=== PATIENT | female | born 1955 | race Caucasian/White ===

== ENCOUNTER 2017-10-02 04:39 | Inpatient (IN) | payer MEDICARE ==
[~2017-10-02] VITALS: Ht 165.1 cm; Wt 62.3 kg
[~2017-10-02 04:39] MED LIST: ALPR0.25 PO; ASPI325T17; BUDE10.2 INH; DOXY100T10 PO; ESOM40CA; FLOMAX; FLUT1DIS3; HYDR-3240; IPRA14.7; IPRA3AMP INH; LEVO75CA2; LOVA40TA65; MELO7.5T31; METO25TA91; POTA20PA25; PRED10TA PO
[2017-10-02] MEDS ORDERED: ALBUTEROL SULFATE 2.5 MG/3 ML NPPB ONE ×2 (05:00)
[2017-10-02] MEDS ORDERED: ALBUTEROL SULFATE 2.5 MG/3 ML ONE ×2 (05:03→07:53)
[2017-10-02] MEDS ORDERED: SODIUM CHLORIDE 0.9% 1,000 ML IV ONE (05:20)
[2017-10-02] MEDS ORDERED: ACETAMINOPHEN 325 MG TABLET PO ONE (05:30)
[2017-10-02] MEDS ORDERED: SODIUM CHLORIDE FLUSH 10ML SYR IVF ONE (05:30)
[2017-10-02] MEDS ORDERED: SODIUM CHLORIDE 0.9% 1,000ML IVBOLUS ONE (05:30)
[2017-10-02] MEDS ORDERED: ACETAMINOPHEN 325 MG TABLET ONE (05:55)
[2017-10-02] MEDS ORDERED: LORazepam 2 MG/ML, 1ML ONE (06:00)
[2017-10-02] MEDS ORDERED: LORazepam 2 MG/ML, 1ML IVPush ONE (06:00)
[2017-10-02 06:06] LABS: BASOPHILS # (AUTO) 0.02 x10^3/uL (0-0.1); BASOPHILS % (AUTO) 0 % (0-1); EOSINOPHILS % (AUTO) 0 % (1-7); LYMPHOCYTES # (AUTO) 0.49 x10^3/uL (1-3.4); LYMPHOCYTES % (AUTO) 5 % (22-44); MD NO; MEAN CORPUSCULAR HEMOGLOBIN 28.8 pg (27.0-34.8); MEAN CORPUSCULAR HGB CONC 31.9 g/dL (32.4-35.8); MEAN CORPUSCULAR VOLUME 90.4 fL (80-100); MEAN PLATELET VOLUME 7.5 fL (7.4-10.4); MONOCYTES # (AUTO) 0.37 x10^3/uL (0.2-0.8); MONOCYTES % (AUTO) 4 % (2-9); NEUTROPHILS % (AUTO) 91 % (42-75); PLATELET COUNT 573 x10^3/uL (130-400); RED BLOOD COUNT 4.21 x10^6/uL (3.82-5.3); RED CELL DISTRIBUTION WIDTH 14.5 % (9.6-15.2)
[2017-10-02 06:08] LABS: ALANINE AMINOTRANSFERASE 12 U/L (12-78); ALBUMIN 2.4 g/dL (3.4-5.0); ANION GAP 9 mmol/L (5-15); CALCIUM 8.1 mg/dL (8.5-10.1); CHLORIDE 105 mmol/L (98-107); CREATININE 0.85 mg/dL (0.55-1.02)
[2017-10-02] MEDS ORDERED: LEVO750T26 PO (06:10)
[2017-10-02 06:12] LABS: ALKALINE PHOSPHATASE 88 U/L (45-117); BILIRUBIN,TOTAL 0.3 mg/dL (0.2-1.0); TOTAL PROTEIN 6.6 g/dL (6.4-8.2)
[2017-10-02] MEDS: PROPOFOL 100 ML IV PRN ×3 (07:53→17:22)
[2017-10-02] MEDS ORDERED: SUCCINYLCHOLINE 20 MG/ML, 10ML IVPush ONE (08:00)
[2017-10-02] MEDS ORDERED: ETOMIDATE 20 MG/10 ML IVPush ONE (08:00)
[2017-10-02 08:17] LABS: TROPONIN I < 0.015 ng/mL (0.000-0.045)
[2017-10-02 08:23] LABS: RAPID INFLUENZA A POSITIVE (Negative); RAPID INFLUENZA B Negative (Negative)
[2017-10-02] MEDS ORDERED: MIDAZOLAM 1 MG/ML, 2ML IVPush ONE ×2 (08:30→10:30)
[2017-10-02] MEDS ORDERED: CEFTRIAXONE PMX 1GM/50ML 50 ML IV ONE (09:30)
[2017-10-02] MEDS ORDERED: CEFTRIAXONE PMX 1GM/50ML 50 ML ONE (09:36)
[2017-10-02] MEDS ORDERED: MIDAZOLAM 1 MG/ML, 5ML ONE ×2 (10:21→11:20)
[2017-10-02] MEDS ORDERED: morphine SULFATE 10 MG/ML, 1ML IVPush PRN (10:30)
[2017-10-02] MEDS ORDERED: NOREPINEPHRINE 4 MG in SODIUM CHLORIDE 0.9% 246 ML IV PRN (10:30)
[2017-10-02] MEDS ORDERED: LORazepam 2 MG/ML, 1ML IVPush PRN (10:30)
[2017-10-02] MEDS ORDERED: ACETAMINOPHEN 325 MG TABLET PO PRN (10:30)
[2017-10-02] MEDS ORDERED: LABETALOL 5MG/ML, 20ML IVPush PRN (10:30)
[2017-10-02] MEDS ORDERED: POLYETHYLENE GLYCOL 17 GM PACKET PO PRN (10:30)
[2017-10-02] MEDS ORDERED: ONDANSETRON 2MG/ML, 2ML IVPush PRN (10:30)
[2017-10-02] MEDS ORDERED: CEFTRIAXONE PMX 1GM/50ML 50 ML IV SCH (10:30)
[2017-10-02] MEDS ORDERED: ACETAMINOPHEN 325 MG SUPP ONE (10:34)
[2017-10-02] MEDS ORDERED: NS + 20MEQ KCL 1,000 ML IV ONE (10:37)
[2017-10-02] MEDS ORDERED: ENOXAPARIN 40 MG/0.4 ML ONE (10:37)
[2017-10-02] MEDS: ENOXAPARIN 40 MG/0.4 ML SQ SCH (10:43)
[2017-10-02] MEDS: AZITHROMYCIN 500 MG in SODIUM CHLORIDE 0.9% 250 ML IV SCH (10:44)
[2017-10-02 10:45] LABS: AMPHETAMINE SCREEN, URINE Positive (Negative); BARBITURATE SCREEN, URINE Negative (Negative); BENZODIAZEPINE SCREEN, URINE Negative (Negative); CANNABINOID SCREEN, URINE Negative (Negative); COCAINE SCREEN, URINE Negative (Negative); METHADONE SCREEN, URINE Negative (Negative); OPIATE SCREEN, URINE Negative (Negative)
[2017-10-02] MEDS: NS + 20MEQ KCL 1,000 ML IV SCH ×2 (10:45→19:55)
[2017-10-02] MEDS ORDERED: SENNOSIDES 8.8 MG/5 ML ORAL SOL NG PRN (11:00)
[2017-10-02] MEDS ORDERED: MIDAZOLAM HCL 25 MG in SODIUM CHLORIDE 0.9% 245 ML IV PRN (11:00)
[2017-10-02] MEDS ORDERED: BISACODYL 10 MG SUPP PR PRN (11:00)
[2017-10-02] MEDS ORDERED: MIDAZOLAM 1 MG/ML, 5ML IVPush ONE (11:00)
[2017-10-02] MEDS ORDERED: PHARMACY MAY ADJ FOR RENAL FX MC SCH (11:00)
[2017-10-02] MEDS ORDERED: SODIUM CHLORIDE 0.9% 1,000ML IV SCH (11:00)
[2017-10-02] MEDS ORDERED: LIDOCAINE-MPF 1%, 2ML ENDO PRN (11:00)
[2017-10-02] MEDS ORDERED: SENNA/DOCUSATE TABLET NG PRN (11:00)
[2017-10-02] MEDS ORDERED: FAMOTIDINE 20 MG/2 ML IV SCH (11:00)
[2017-10-02] MEDS ORDERED: LACTULOSE 20 GM/30 ML UDC NG PRN (11:00)
[2017-10-02] MEDS ORDERED: SUCCINYLCHOLINE 20 MG/ML, 10ML ONE (11:20)
[2017-10-02] MEDS ORDERED: PROPOFOL 10 MG/ML, 100ML IV ONE (11:20)
[2017-10-02] MEDS ORDERED: morphine SULFATE 10 MG/ML, 1ML ONE (11:41)
[2017-10-02] MEDS: ALBUTEROL/IPRATROPIUM 2.5MG/0.5MG, 3 ML INLINE SCH ×4 (12:06→23:55)
[2017-10-02] MEDS ORDERED: ALBUTEROL/IPRATROPIUM 2.5MG/0.5MG, 3 ML ONE (12:08)
[2017-10-02] MEDS: OSELTAMIVIR 6 MG/ML ORAL SUSP PO SCH ×2 (12:39→21:29)
[2017-10-02] MEDS: methylPREDNISolone SOD SUCC 125 MG/2 ML IVPush SCH ×2 (13:03→17:22)
[2017-10-02] MEDS: FENTANYL PF 100 MCG/2ML IVPush PRN (21:27)
[2017-10-02] MEDS: FAMOTIDINE 20 MG/2 ML IVPush SCH (21:29)
[2017-10-03] MEDS: PROPOFOL 100 ML IV PRN ×4 (00:07→19:13)
[2017-10-03] MEDS: methylPREDNISolone SOD SUCC 125 MG/2 ML IVPush SCH ×5 (00:13→23:24)
[2017-10-03] MEDS: ALBUTEROL/IPRATROPIUM 2.5MG/0.5MG, 3 ML INLINE SCH ×6 (02:54→22:55)
[2017-10-03] MEDS: FENTANYL PF 100 MCG/2ML IVPush PRN (03:15)
[2017-10-03 03:50] VITALS: BP 140/87
[2017-10-03 04:28] LABS: BASOPHILS # (AUTO) 0.01 x10^3/uL (0-0.1); BASOPHILS % (AUTO) 0 % (0-1); EOSINOPHILS % (AUTO) 0 % (1-7); LYMPHOCYTES # (AUTO) 0.65 x10^3/uL (1-3.4); LYMPHOCYTES % (AUTO) 15 % (22-44); MD NO; MEAN CORPUSCULAR HEMOGLOBIN 29.9 pg (27.0-34.8); MEAN CORPUSCULAR HGB CONC 32.9 g/dL (32.4-35.8); MEAN CORPUSCULAR VOLUME 90.8 fL (80-100); MEAN PLATELET VOLUME 7.7 fL (7.4-10.4); MONOCYTES # (AUTO) 0.07 x10^3/uL (0.2-0.8); MONOCYTES % (AUTO) 2 % (2-9); NEUTROPHILS # (AUTO) 3.68 x10^3/uL (1.8-6.8); NEUTROPHILS % (AUTO) 83 % (42-75); PLATELET COUNT 429 x10^3/uL (130-400); RED BLOOD COUNT 3.69 x10^6/uL (3.82-5.3); RED CELL DISTRIBUTION WIDTH 14.9 % (9.6-15.2)
[2017-10-03 04:33] LABS: ALANINE AMINOTRANSFERASE 12 U/L (12-78); ANION GAP 6 mmol/L (5-15); CHLORIDE 116 mmol/L (98-107); CREATININE 0.48 mg/dL (0.55-1.02)
[2017-10-03 04:36] LABS: ALKALINE PHOSPHATASE 71 U/L (45-117); BILIRUBIN,TOTAL 0.2 mg/dL (0.2-1.0); TOTAL PROTEIN 5.9 g/dL (6.4-8.2)
[2017-10-03] MEDS: NS + 20MEQ KCL 1,000 ML IV SCH ×2 (06:00→16:39)
[2017-10-03] MEDS: OSELTAMIVIR 6 MG/ML ORAL SUSP PO SCH ×2 (09:26→21:19)
[2017-10-03] MEDS: SENNA/DOCUSATE TABLET PO SCH (09:26)
[2017-10-03] MEDS: FAMOTIDINE 20 MG/2 ML IVPush SCH ×2 (09:26→21:19)
[2017-10-03] MEDS ORDERED: CEFTRIAXONE 1,000 MG in DEXTROSE 5% 50 ML IV SCH (09:30)
[2017-10-03] MEDS: ENOXAPARIN 40 MG/0.4 ML SQ SCH (10:42)
[2017-10-03] MEDS: AZITHROMYCIN 500 MG in SODIUM CHLORIDE 0.9% 250 ML IV SCH (10:42)
[2017-10-04] MEDS: PROPOFOL 100 ML IV PRN (02:42)
[2017-10-04] MEDS: NS + 20MEQ KCL 1,000 ML IV SCH (02:42)
[2017-10-04] MEDS: ALBUTEROL/IPRATROPIUM 2.5MG/0.5MG, 3 ML INLINE SCH ×2 (03:00→06:55)
[2017-10-04 04:00] VITALS: BP 118/77
[2017-10-04 04:54] LABS: BASOPHILS # (AUTO) 0.01 x10^3/uL (0-0.1); BASOPHILS % (AUTO) 0 % (0-1); EOSINOPHILS % (AUTO) 0 % (1-7); LYMPHOCYTES # (AUTO) 0.67 x10^3/uL (1-3.4); LYMPHOCYTES % (AUTO) 23 % (22-44); MD NO; MEAN CORPUSCULAR HEMOGLOBIN 29.7 pg (27.0-34.8); MEAN CORPUSCULAR HGB CONC 32.9 g/dL (32.4-35.8); MEAN CORPUSCULAR VOLUME 90.3 fL (80-100); MONOCYTES # (AUTO) 0.17 x10^3/uL (0.2-0.8); MONOCYTES % (AUTO) 6 % (2-9); NEUTROPHILS # (AUTO) 2.12 x10^3/uL (1.8-6.8); NEUTROPHILS % (AUTO) 72 % (42-75); PLATELET COUNT 426 x10^3/uL (130-400); RED BLOOD COUNT 3.47 x10^6/uL (3.82-5.3); RED CELL DISTRIBUTION WIDTH 15.3 % (9.6-15.2)
[2017-10-04 04:58] LABS: ANION GAP 4 mmol/L (5-15); CALCIUM 7.8 mg/dL (8.5-10.1); CHLORIDE 117 mmol/L (98-107)
[2017-10-04 05:02] LABS: CREATININE 0.41 mg/dL (0.55-1.02)
[2017-10-04] MEDS: methylPREDNISolone SOD SUCC 125 MG/2 ML IVPush SCH ×4 (05:02→22:35)
[2017-10-04] MEDS: CEFTRIAXONE 1,000 MG in SODIUM CHLORIDE 0.9% 50 ML IV SCH (09:04)
[2017-10-04] MEDS: SENNA/DOCUSATE TABLET PO SCH (09:04)
[2017-10-04] MEDS: FAMOTIDINE 20 MG/2 ML IVPush SCH ×2 (09:04→21:02)
[2017-10-04] MEDS: OSELTAMIVIR 6 MG/ML ORAL SUSP PO SCH ×2 (09:04→21:02)
[2017-10-04] MEDS: ENOXAPARIN 40 MG/0.4 ML SQ SCH (10:30)
[2017-10-04] MEDS: AZITHROMYCIN 500 MG in SODIUM CHLORIDE 0.9% 250 ML IV SCH (10:48)
[2017-10-04 21:02] VITALS: BP 148/84
[2017-10-05 02:03] VITALS: BP 110/70
[2017-10-05 04:37] LABS: BASOPHILS # (AUTO) 0.01 x10^3/uL (0-0.1); BASOPHILS % (AUTO) 0 % (0-1); EOSINOPHILS % (AUTO) 0 % (1-7); LYMPHOCYTES % (AUTO) 15 % (22-44); MD NO; MEAN CORPUSCULAR HEMOGLOBIN 29.9 pg (27.0-34.8); MEAN CORPUSCULAR VOLUME 90.6 fL (80-100); MEAN PLATELET VOLUME 8.1 fL (7.4-10.4); MONOCYTES # (AUTO) 0.26 x10^3/uL (0.2-0.8); MONOCYTES % (AUTO) 5 % (2-9); NEUTROPHILS # (AUTO) 4.25 x10^3/uL (1.8-6.8); NEUTROPHILS % (AUTO) 80 % (42-75); PLATELET COUNT 452 x10^3/uL (130-400); RED BLOOD COUNT 3.75 x10^6/uL (3.82-5.3); RED CELL DISTRIBUTION WIDTH 14.5 % (9.6-15.2)
[2017-10-05 04:48] LABS: ANION GAP 5 mmol/L (5-15); CALCIUM 7.9 mg/dL (8.5-10.1); CHLORIDE 109 mmol/L (98-107)
[2017-10-05 04:50] LABS: TRIGLYCERIDES 221 mg/dL (50-200)
[2017-10-05] MEDS: methylPREDNISolone SOD SUCC 125 MG/2 ML IVPush SCH ×2 (05:01→10:24)
[2017-10-05] MEDS ORDERED: ALBUTEROL/IPRATROPIUM 2.5MG/0.5MG, 3 ML INLINE SCH (07:00)
[2017-10-05 07:05] VITALS: BP 145/82
[2017-10-05] MEDS: OSELTAMIVIR 6 MG/ML ORAL SUSP PO SCH ×2 (08:15→19:40)
[2017-10-05] MEDS: SENNA/DOCUSATE TABLET PO SCH (08:15)
[2017-10-05] MEDS: FAMOTIDINE 20 MG/2 ML IVPush SCH ×2 (08:16→19:40)
[2017-10-05] MEDS: AZITHROMYCIN 500 MG in SODIUM CHLORIDE 0.9% 250 ML IV SCH (10:24)
[2017-10-05] MEDS: ENOXAPARIN 40 MG/0.4 ML SQ SCH ×2 (10:24→10:26)
[2017-10-05] MEDS: CEFTRIAXONE 1,000 MG in SODIUM CHLORIDE 0.9% 50 ML IV SCH (11:00)
[2017-10-05 13:19] VITALS: BP 111/67
[2017-10-05 19:11] VITALS: BP 129/74
[2017-10-05] MEDS: methylPREDNISolone SOD SUCC 40 MG/ML IVPush SCH (19:40)
[2017-10-06 02:10] VITALS: BP 129/70
[2017-10-06 04:24] LABS: BASOPHILS # (AUTO) 0.01 x10^3/uL (0-0.1); BASOPHILS % (AUTO) 0 % (0-1); EOSINOPHILS % (AUTO) 0 % (1-7); LYMPHOCYTES % (AUTO) 20 % (22-44); MD NO; MEAN CORPUSCULAR HEMOGLOBIN 29.6 pg (27.0-34.8); MEAN CORPUSCULAR HGB CONC 32.7 g/dL (32.4-35.8); MEAN CORPUSCULAR VOLUME 90.3 fL (80-100); MEAN PLATELET VOLUME 7.9 fL (7.4-10.4); MONOCYTES # (AUTO) 0.39 x10^3/uL (0.2-0.8); MONOCYTES % (AUTO) 7 % (2-9); NEUTROPHILS # (AUTO) 4.01 x10^3/uL (1.8-6.8); NEUTROPHILS % (AUTO) 73 % (42-75); PLATELET COUNT 422 x10^3/uL (130-400); RED BLOOD COUNT 4.12 x10^6/uL (3.82-5.3)
[2017-10-06] MEDS: methylPREDNISolone SOD SUCC 40 MG/ML IVPush SCH ×2 (04:35→13:00)
[2017-10-06 04:40] LABS: ANION GAP 10 mmol/L (5-15); CALCIUM 8.4 mg/dL (8.5-10.1); CHLORIDE 104 mmol/L (98-107)
[2017-10-06 04:41] LABS: CREATININE 0.58 mg/dL (0.55-1.02)
[2017-10-06 06:49] VITALS: BP 148/80
[2017-10-06] MEDS: OSELTAMIVIR 6 MG/ML ORAL SUSP PO SCH (08:58)
[2017-10-06] MEDS: SENNA/DOCUSATE TABLET PO SCH (08:58)
[2017-10-06] MEDS: FAMOTIDINE 20 MG/2 ML IVPush SCH (08:58)
[2017-10-06] MEDS: ENOXAPARIN 40 MG/0.4 ML SQ SCH (08:59)
[2017-10-06] MEDS ORDERED: TEMPLATE NON-FORMULARY MED. (Budesonide/Formoterol Fumarate (Symbicort 160-4.5 Mcg Inhaler INH SCH (09:00)
[2017-10-06] MEDS ORDERED: POTASSIUM CHLORIDE 40 MEQ in SODIUM CHLORIDE 0.9% 500 ML IV ONE (09:00)
[2017-10-06] MEDS ORDERED: ALBUTEROL/IPRATROPIUM 2.5MG/0.5MG, 3 ML NPPB SCH (09:00)
[2017-10-06] MEDS: AZITHROMYCIN 500 MG in SODIUM CHLORIDE 0.9% 250 ML IV SCH (10:21)
[2017-10-06] MEDS: CEFTRIAXONE 1,000 MG in SODIUM CHLORIDE 0.9% 50 ML IV SCH (11:53)
[2017-10-06 12:17] VITALS: BP 155/91
[2017-10-06] MEDS ORDERED: OSEL75CA PO (16:12)
[2017-10-06] MEDS ORDERED: CEFD300C37 PO (16:12)
[2017-10-06] MEDS ORDERED: BUDE10.2 INH (16:12)
[2017-10-06] MEDS ORDERED: IPRA3AMP NPPB (16:12)
[2017-10-06] MEDS ORDERED: PRED5TAB PO (16:12)
[2017-10-06] MEDS ORDERED: AZIT500T5 PO (16:12)
== END 2017-10-06 18:56 | disposition home or self-care (01) | DRG 871 ==
LOC: ED 07:48 → EDIP 07:49 → ED 08:52 → CCU 12:03 → 3NW 10-04 19:45
PROVIDERS: ADMIT Internal Medicine; ATTEND Internal Medicine
PROC: 5A1945Z Respiratory Ventilation, 24-96 Consecutive Hours (ICD-10-PCS; principal; 2017-10-02)
PROC: 0BH17EZ Insertion of Endotracheal Airway into Trachea, Via Natural or Artificial Opening (ICD-10-PCS; 2017-10-02)
DX: A41.9 Sepsis, unspecified organism (principal); J10.00 Influenza due to other identified influenza virus with unspecified type of pneumonia; J96.21 Acute and chronic respiratory failure with hypoxia; E43 Unspecified severe protein-calorie malnutrition; Z99.11 Dependence on respirator [ventilator] status; G93.40 Encephalopathy, unspecified; E11.9 Type 2 diabetes mellitus without complications; D47.3 Essential (hemorrhagic) thrombocythemia; N39.0 Urinary tract infection, site not specified; J44.0 Chronic obstructive pulmonary disease with (acute) lower respiratory infection; J44.1 Chronic obstructive pulmonary disease with (acute) exacerbation; E03.9 Hypothyroidism, unspecified; E78.5 Hyperlipidemia, unspecified; E87.6 Hypokalemia; F17.210 Nicotine dependence, cigarettes, uncomplicated; F19.10 Other psychoactive substance abuse, uncomplicated; I10 Essential (primary) hypertension; N20.0 Calculus of kidney; Z51.5 Encounter for palliative care; Z87.442 Personal history of urinary calculi; Z68.22 Body mass index [BMI] 22.0-22.9, adult; Z91.19 Patient's noncompliance with other medical treatment and regimen; Z99.81 Dependence on supplemental oxygen; Z88.0 Allergy status to penicillin
CPT/HCPCS: 31500; 36415; 36600; 71045; 71250; 80048; 80053; 80307; 82803; 83605; 83735; 83880; 84100; 84443; 84478; 84484; 85025; 87040; 87070; 87081; 87205; 87400; 93005; 94002; 94003; 94640; 96361; 96365; 96375; 96376; J0456; J0696; J1650; J2250; J2704; J3010; J3480; J3490; J7613; J7620; J0330; J2060; J2270; J2920; J2930; J7030; J7040; J7050; S0028

== ENCOUNTER 2018-03-13 14:15 | Inpatient (IN) | payer MEDICARE ==
[~2018-03-13] VITALS: Ht 167.6 cm; Wt 58.3 kg
[~2018-03-13 14:15] MED LIST changes: +AZIT500T5 PO; +CEFD300C37 PO; +IPRA3AMP NPPB; +LEVO750T26 PO; +LOVA-41; -LOVA40TA65; +OSEL75CA PO; +PRED5TAB PO
[2018-03-13] MEDS ORDERED: methylPREDNISolone SOD SUCC 125 MG/2 ML ONE (14:59)
[2018-03-13] MEDS ORDERED: SODIUM CHLORIDE FLUSH 10ML SYR IVF ONE (15:00)
[2018-03-13] MEDS ORDERED: methylPREDNISolone SOD SUCC 125 MG/2 ML IVP ONE (15:00)
[2018-03-13] MEDS ORDERED: ALBUTEROL/IPRATROPIUM 2.5MG/0.5MG, 3 ML NPPB ONE (15:00)
[2018-03-13 15:26] LABS: BASOPHILS # (AUTO) 0.09 x10^3/uL (0-0.1); BASOPHILS % (AUTO) 2 % (0-1); EOSINOPHILS % (AUTO) 16 % (1-7); LYMPHOCYTES # (AUTO) 2.12 x10^3/uL (1-3.4); LYMPHOCYTES % (AUTO) 34 % (22-44); MD NO; MEAN CORPUSCULAR HEMOGLOBIN 29.3 pg (27.0-34.8); MEAN CORPUSCULAR VOLUME 88.8 fL (80-100); MEAN PLATELET VOLUME 8.6 fL (7.4-10.4); MONOCYTES # (AUTO) 0.45 x10^3/uL (0.2-0.8); MONOCYTES % (AUTO) 7 % (2-9); NEUTROPHILS # (AUTO) 2.54 x10^3/uL (1.8-6.8); NEUTROPHILS % (AUTO) 41 % (42-75); PLATELET COUNT 336 x10^3/uL (130-400); RED CELL DISTRIBUTION WIDTH 14.1 % (9.6-15.2)
[2018-03-13] MEDS ORDERED: ALBUTEROL/IPRATROPIUM 2.5MG/0.5MG, 3 ML ONE (15:30)
[2018-03-13 15:36] LABS: ANION GAP 5 mmol/L (5-15); CALCIUM 8.4 mg/dL (8.5-10.1); CHLORIDE 111 mmol/L (98-107); CREATININE 0.85 mg/dL (0.55-1.02)
[2018-03-13 15:37] LABS: ALBUMIN 3.2 g/dL (3.4-5.0)
[2018-03-13 15:40] LABS: TROPONIN I < 0.015 ng/mL (0.000-0.045)
[2018-03-13] MEDS ORDERED: POLYETHYLENE GLYCOL 17 GM PACKET PO PRN (17:00)
[2018-03-13] MEDS ORDERED: BISACODYL 10 MG SUPP PR PRN (17:00)
[2018-03-13] MEDS: ENOXAPARIN 40 MG/0.4 ML SQ SCH (17:00)
[2018-03-13] MEDS ORDERED: ACETAMINOPHEN 325 MG TABLET PO PRN (17:00)
[2018-03-13] MEDS ORDERED: hydrALAzine 20 MG/ML, 1ML IVPush PRN (17:00)
[2018-03-13] MEDS ORDERED: ONDANSETRON 2MG/ML, 2ML IVPush PRN (17:00)
[2018-03-13] MEDS ORDERED: DOCUSATE 100 MG CAPSULE PO PRN (17:00)
[2018-03-13] MEDS ORDERED: POTASSIUM CHLORIDE 20 MEQ TAB.ER.PRT PO ONE (17:00)
[2018-03-13 18:43] VITALS: BP 147/87
[2018-03-13] MEDS: GUAIFENESIN ER 600 MG TABLET PO SCH (19:41)
[2018-03-13] MEDS: methylPREDNISolone SOD SUCC 125 MG/2 ML IVPush SCH (19:42)
[2018-03-13] MEDS: SODIUM CHLORIDE FLUSH 10ML SYR IVF SCH (20:25)
[2018-03-13] MEDS ORDERED: ALBUTEROL/IPRATROPIUM 2.5MG/0.5MG, 3 ML NPPB SCH (21:00)
[2018-03-14 01:27] VITALS: BP 151/95
[2018-03-14] MEDS ORDERED: ALBUTEROL/IPRATROPIUM 2.5MG/0.5MG, 3 ML NPPB PRN (01:30)
[2018-03-14] MEDS: methylPREDNISolone SOD SUCC 125 MG/2 ML IVPush SCH ×2 (01:43→08:02)
[2018-03-14] MEDS: ALBUTEROL/IPRATROPIUM 2.5MG/0.5MG, 3 ML NPPB SCH ×4 (07:25→20:00)
[2018-03-14 07:58] VITALS: BP 144/89
[2018-03-14] MEDS: GUAIFENESIN ER 600 MG TABLET PO SCH ×2 (08:03→21:04)
[2018-03-14] MEDS: SODIUM CHLORIDE FLUSH 10ML SYR IVF SCH ×2 (08:03→21:04)
[2018-03-14] MEDS: FLUTICASONE/VILANTEROL 200-25MCG/INH INH SCH (09:33)
[2018-03-14 12:45] VITALS: BP 132/74
[2018-03-14] MEDS: ENOXAPARIN 40 MG/0.4 ML SQ SCH (16:03)
[2018-03-14 19:35] VITALS: BP 120/68
[2018-03-15 01:36] VITALS: BP 138/86
[2018-03-15] MEDS: ALBUTEROL/IPRATROPIUM 2.5MG/0.5MG, 3 ML NPPB SCH ×2 (06:36→10:10)
[2018-03-15 07:06] VITALS: BP 123/78
[2018-03-15] MEDS ORDERED: PRED20TA PO (08:30)
[2018-03-15] MEDS: SODIUM CHLORIDE FLUSH 10ML SYR IVF SCH (08:32)
[2018-03-15] MEDS: GUAIFENESIN ER 600 MG TABLET PO SCH (08:32)
[2018-03-15] MEDS: FLUTICASONE/VILANTEROL 200-25MCG/INH INH SCH (08:32)
== END 2018-03-15 11:30 | disposition home or self-care (01) | DRG 189 ==
LOC: ED 15:16 → EDIP 16:36 → 3NE 18:39 → DCLOUNGE 03-15 11:30
PROVIDERS: ADMIT Internal Medicine; ATTEND Internal Medicine
DX: J96.21 Acute and chronic respiratory failure with hypoxia (principal); J44.1 Chronic obstructive pulmonary disease with (acute) exacerbation; E44.1 Mild protein-calorie malnutrition; E87.6 Hypokalemia; E11.65 Type 2 diabetes mellitus with hyperglycemia; I11.9 Hypertensive heart disease without heart failure; Z68.20 Body mass index [BMI] 20.0-20.9, adult; E78.5 Hyperlipidemia, unspecified; E03.9 Hypothyroidism, unspecified; F15.90 Other stimulant use, unspecified, uncomplicated; F17.210 Nicotine dependence, cigarettes, uncomplicated; F19.10 Other psychoactive substance abuse, uncomplicated; Z59.0 Homelessness; Z87.440 Personal history of urinary (tract) infections; Z87.442 Personal history of urinary calculi; Z91.19 Patient's noncompliance with other medical treatment and regimen; Z99.81 Dependence on supplemental oxygen; Z87.01 Personal history of pneumonia (recurrent); Z88.0 Allergy status to penicillin; Z88.8 Allergy status to other drugs, medicaments and biological substances
CPT/HCPCS: 36415; 71045; 80048; 82040; 84484; 85025; 93005; 94640; 96374; J7620; J2930; J7512

== ENCOUNTER 2018-04-01 02:08 | Inpatient (IN) | payer MEDICARE ==
[~2018-04-01] VITALS: Ht 167.6 cm; Wt 55.7 kg
[~2018-04-01 02:08] MED LIST changes: +PRED20TA PO
[2018-04-01] MEDS ORDERED: ALBU18HF INH (02:21)
[2018-04-01] MEDS ORDERED: ONDANSETRON ODT 4 MG ONE (02:29)
[2018-04-01] MEDS ORDERED: MORPHINE SULFATE 4 MG/ML, 1ML ONE (02:29)
[2018-04-01] MEDS ORDERED: MORPHINE SULFATE 4 MG/ML, 1ML IVPush ONE (02:30)
[2018-04-01] MEDS ORDERED: ONDANSETRON ODT 4 MG PO ONE (02:30)
[2018-04-01] MEDS ORDERED: SODIUM CHLORIDE FLUSH 10ML SYR IVF ONE ×2 (02:30→04:30)
[2018-04-01 02:46] LABS: ALANINE AMINOTRANSFERASE 30 U/L (12-78); ALBUMIN 2.2 g/dL (3.4-5.0); ANION GAP 7 mmol/L (5-15); CALCIUM 8.5 mg/dL (8.5-10.1); CHLORIDE 98 mmol/L (98-107); CREATININE 1.08 mg/dL (0.55-1.02)
[2018-04-01 02:48] LABS: ALKALINE PHOSPHATASE 184 U/L (45-117); TOTAL PROTEIN 6.8 g/dL (6.4-8.2)
[2018-04-01 02:52] LABS: BASOPHILS # (AUTO) 0.03 x10^3/uL (0-0.1); BASOPHILS % (AUTO) 0 % (0-1); EOSINOPHILS # (AUTO) 0.63 x10^3/uL (0-0.4); EOSINOPHILS % (AUTO) 6 % (1-7); LYMPHOCYTES # (AUTO) 1.42 x10^3/uL (1-3.4); LYMPHOCYTES % (AUTO) 14 % (22-44); MD SCAN; MEAN CORPUSCULAR HEMOGLOBIN 29.6 pg (27.0-34.8); MEAN CORPUSCULAR VOLUME 89.9 fL (80-100); MEAN PLATELET VOLUME 9.7 fL (7.4-10.4); MONOCYTES % (AUTO) 8 % (2-9); NEUTROPHILS # (AUTO) 7.48 x10^3/uL (1.8-6.8); NEUTROPHILS % (AUTO) 72 % (42-75); PLATELET COUNT 334 x10^3/uL (130-400); RED BLOOD COUNT 4.73 x10^6/uL (3.82-5.3); RED CELL DISTRIBUTION WIDTH 14.4 % (9.6-15.2)
[2018-04-01] MEDS ORDERED: OMNIPAQUE 350 MG/ML, 100ML BOTTLE ONE (03:28)
[2018-04-01 04:27] LABS: CULTURE INDICATED? YES; MICROSCOPIC INDICATED
[2018-04-01] MEDS ORDERED: KETOROLAC 30 MG/1 ML ONE (04:27)
[2018-04-01] MEDS ORDERED: KETOROLAC 30 MG/1 ML IVPush ONE (04:30)
[2018-04-01] MEDS ORDERED: SODIUM CHLORIDE 0.9% 1,000ML IVBOLUS ONE (04:30)
[2018-04-01] MEDS ORDERED: CEFTRIAXONE PMX 1GM/50ML 50 ML IV ONE (04:30)
[2018-04-01] MEDS ORDERED: CEFTRIAXONE PMX 1GM/50ML 50 ML ONE (04:32)
[2018-04-01] MEDS ORDERED: ONDANSETRON 2MG/ML, 2ML IVPush PRN (05:30)
[2018-04-01] MEDS ORDERED: DOCUSATE 100 MG CAPSULE PO PRN (05:30)
[2018-04-01] MEDS: NICOTINE 7 MG/24 HR PATCH.TD24 TD SCH (05:30)
[2018-04-01] MEDS ORDERED: ALBUTEROL SULFATE 2.5 MG/3 ML NPPB PRN ×2 (05:30→08:00)
[2018-04-01] MEDS ORDERED: morphine SULFATE 10 MG/ML, 1ML IVPush PRN (05:30)
[2018-04-01] MEDS ORDERED: LABETALOL 5MG/ML, 20ML IVPush PRN (05:30)
[2018-04-01] MEDS ORDERED: ACETAMINOPHEN 325 MG TABLET PO PRN ×2 (05:30→08:00)
[2018-04-01] MEDS ORDERED: ONDANSETRON ODT 4 MG PO PRN (05:30)
[2018-04-01] MEDS ORDERED: TEMAZEPAM 15 MG CAPSULE PO PRN (05:30)
[2018-04-01 06:16] VITALS: BP 107/69
[2018-04-01 06:32] LABS: HEMOGLOBIN A1C 5.6 % (4.2-6.3)
[2018-04-01] MEDS ORDERED: FENTANYL PF 100 MCG/2ML ONE (06:50)
[2018-04-01] MEDS ORDERED: PROPOFOL 10 MG/ML, 20ML ONE (06:58)
[2018-04-01 08:00] VITALS: BP 113/71
[2018-04-01] MEDS ORDERED: MORPHINE SULFATE 4 MG/ML, 1ML IVPush PRN (08:00)
[2018-04-01] MEDS ORDERED: OXYcodone 5 MG/5 ML ORAL.SOL UDC PO PRN (08:00)
[2018-04-01] MEDS ORDERED: ONDANSETRON ODT 8 MG PO PRN (08:00)
[2018-04-01] MEDS ORDERED: PROMETHAZINE 25 MG/ML, 1ML IV PRN (08:00)
[2018-04-01] MEDS ORDERED: FENTANYL PF 100 MCG/2ML IV PRN (08:00)
[2018-04-01] MEDS ORDERED: HYDROcodone/APAP 7.5-325MG/15ML UDC PO PRN (08:00)
[2018-04-01] MEDS: FAMOTIDINE 20 MG/2 ML IVPush SCH ×2 (12:20→20:58)
[2018-04-01] MEDS: D5%-0.45NACL+KCL 20MEQ 1,000 ML IV SCH ×2 (12:20→20:58)
[2018-04-01 13:45] VITALS: BP 108/70
[2018-04-01 21:00] VITALS: BP 125/85
[2018-04-02 00:23] VITALS: BP 145/81
[2018-04-02] MEDS: CEFTRIAXONE 1,000 MG in SODIUM CHLORIDE 0.9% 50 ML IVPB SCH (04:59)
[2018-04-02] MEDS: NICOTINE 7 MG/24 HR PATCH.TD24 TD SCH (05:30)
[2018-04-02 05:33] LABS: BASOPHILS # (AUTO) 0.02 x10^3/uL (0-0.1); BASOPHILS % (AUTO) 0 % (0-1); EOSINOPHILS # (AUTO) 0.62 x10^3/uL (0-0.4); EOSINOPHILS % (AUTO) 6 % (1-7); LYMPHOCYTES # (AUTO) 1.55 x10^3/uL (1-3.4); LYMPHOCYTES % (AUTO) 15 % (22-44); MD NO; MEAN CORPUSCULAR HEMOGLOBIN 29.3 pg (27.0-34.8); MEAN CORPUSCULAR HGB CONC 33.5 g/dL (32.4-35.8); MEAN CORPUSCULAR VOLUME 87.4 fL (80-100); MEAN PLATELET VOLUME 9.1 fL (7.4-10.4); MONOCYTES # (AUTO) 0.78 x10^3/uL (0.2-0.8); MONOCYTES % (AUTO) 8 % (2-9); NEUTROPHILS # (AUTO) 7.47 x10^3/uL (1.8-6.8); NEUTROPHILS % (AUTO) 72 % (42-75); PLATELET COUNT 380 x10^3/uL (130-400); RED BLOOD COUNT 4.32 x10^6/uL (3.82-5.3); RED CELL DISTRIBUTION WIDTH 14.4 % (9.6-15.2)
[2018-04-02 05:45] LABS: ALBUMIN 1.9 g/dL (3.4-5.0); ANION GAP 7 mmol/L (5-15); CALCIUM 8.5 mg/dL (8.5-10.1); CHLORIDE 105 mmol/L (98-107)
[2018-04-02] MEDS: D5%-0.45NACL+KCL 20MEQ 1,000 ML IV SCH (05:47)
[2018-04-02 05:49] LABS: ALANINE AMINOTRANSFERASE 21 U/L (12-78); ALKALINE PHOSPHATASE 187 U/L (45-117); BILIRUBIN,TOTAL 0.9 mg/dL (0.2-1.0); CREATININE 0.87 mg/dL (0.55-1.02)
[2018-04-02 07:09] VITALS: BP 144/84
[2018-04-02] MEDS: FAMOTIDINE 20 MG/2 ML IVPush SCH (07:17)
[2018-04-02] MEDS ORDERED: POTASSIUM CHLORIDE 20 MEQ TAB.ER.PRT PO ONE (07:30)
[2018-04-02 09:59] VITALS: BP 128/80
[2018-04-02 12:32] VITALS: BP 137/75
[2018-04-02] MEDS: ALBUTEROL/IPRATROPIUM 2.5MG/0.5MG, 3 ML NPPB SCH ×3 (14:00→22:21)
[2018-04-02 14:28] LABS: MICROSCOPIC AUTO
[2018-04-02 14:30] LABS: CULTURE INDICATED? YES
[2018-04-02 14:49] LABS: PH, VENOUS 7.446 pH (7.320-7.420)
[2018-04-02 16:37] VITALS: BP 129/82
[2018-04-02 20:00] VITALS: BP 132/91
[2018-04-03 02:00] VITALS: BP 131/79
[2018-04-03] MEDS: ALBUTEROL/IPRATROPIUM 2.5MG/0.5MG, 3 ML NPPB SCH ×6 (03:00→19:55)
[2018-04-03] MEDS: CEFTRIAXONE 1,000 MG in SODIUM CHLORIDE 0.9% 50 ML IVPB SCH (05:17)
[2018-04-03] MEDS: NICOTINE 7 MG/24 HR PATCH.TD24 TD SCH (05:26)
[2018-04-03 07:40] VITALS: BP 132/87
[2018-04-03] MEDS: FLUTICASONE/VILANTEROL 100-25MCG/INH INH SCH (10:45)
[2018-04-03 14:50] VITALS: BP 132/85
[2018-04-03 20:00] VITALS: BP 113/68
[2018-04-04 02:00] VITALS: BP 127/76
[2018-04-04 04:14] LABS: BASOPHILS % (AUTO) 0 % (0-1); EOSINOPHILS # (AUTO) 0.04 x10^3/uL (0-0.4); EOSINOPHILS % (AUTO) 0 % (1-7); LYMPHOCYTES # (AUTO) 1.62 x10^3/uL (1-3.4); LYMPHOCYTES % (AUTO) 13 % (22-44); MD NO; MEAN CORPUSCULAR HEMOGLOBIN 28.8 pg (27.0-34.8); MEAN CORPUSCULAR HGB CONC 32.6 g/dL (32.4-35.8); MEAN CORPUSCULAR VOLUME 88.4 fL (80-100); MEAN PLATELET VOLUME 8.8 fL (7.4-10.4); MONOCYTES # (AUTO) 0.41 x10^3/uL (0.2-0.8); MONOCYTES % (AUTO) 3 % (2-9); NEUTROPHILS # (AUTO) 10.42 x10^3/uL (1.8-6.8); NEUTROPHILS % (AUTO) 83 % (42-75); PLATELET COUNT 627 x10^3/uL (130-400); RED BLOOD COUNT 4.34 x10^6/uL (3.82-5.3); RED CELL DISTRIBUTION WIDTH 15.2 % (9.6-15.2)
[2018-04-04] MEDS: CEFTRIAXONE 1,000 MG in SODIUM CHLORIDE 0.9% 50 ML IVPB SCH (04:18)
[2018-04-04 04:25] LABS: ALBUMIN 2.1 g/dL (3.4-5.0); ANION GAP 10 mmol/L (5-15); CALCIUM 9.3 mg/dL (8.5-10.1); CHLORIDE 104 mmol/L (98-107); CREATININE 1.02 mg/dL (0.55-1.02)
[2018-04-04] MEDS: NICOTINE 7 MG/24 HR PATCH.TD24 TD SCH (05:30)
[2018-04-04] MEDS: ALBUTEROL/IPRATROPIUM 2.5MG/0.5MG, 3 ML NPPB SCH ×2 (07:50→11:55)
[2018-04-04 08:12] VITALS: BP 134/85
[2018-04-04] MEDS: FLUTICASONE/VILANTEROL 100-25MCG/INH INH SCH (09:06)
[2018-04-04] MEDS ORDERED: CEFD300C37 PO (13:20)
[2018-04-04] MEDS ORDERED: ALBU18HF PO (13:20)
[2018-04-04] MEDS ORDERED: FLUT1AER INH (13:20)
[2018-04-04] MEDS ORDERED: DOCU-131 PO (13:20)
[2018-04-04] MEDS ORDERED: PRED20TA PO (13:21)
[2018-04-04 14:00] VITALS: BP 113/74
== END 2018-04-04 16:10 | disposition home or self-care (01) | DRG 689 ==
LOC: ED 02:44 → EDIP 04:48 → 3NW 05:33 → DCLOUNGE 04-04 16:00
PROVIDERS: ADMIT Internal Medicine; ATTEND Internal Medicine
PROC: 0T768DZ Dilation of Right Ureter with Intraluminal Device, Via Natural or Artificial Opening Endoscopic (ICD-10-PCS; principal; 2018-04-01 07:00)
DX: N13.6 Pyonephrosis (principal); E43 Unspecified severe protein-calorie malnutrition; J44.1 Chronic obstructive pulmonary disease with (acute) exacerbation; Z68.1 Body mass index [BMI] 19.9 or less, adult; J96.10 Chronic respiratory failure, unspecified whether with hypoxia or hypercapnia; E03.9 Hypothyroidism, unspecified; E78.5 Hyperlipidemia, unspecified; I10 Essential (primary) hypertension; E11.65 Type 2 diabetes mellitus with hyperglycemia; F10.10 Alcohol abuse, uncomplicated; F15.10 Other stimulant abuse, uncomplicated; Z87.440 Personal history of urinary (tract) infections; Z87.442 Personal history of urinary calculi; Z87.891 Personal history of nicotine dependence
CPT/HCPCS: 36415; 71046; 74177; 74420; 80053; 80069; 81001; 82803; 83036; 83690; 85025; 87086; 93005; 94640; 96365; 96375; J0696; J1885; J2704; J3010; J7620; Q0162; Q9967; C1769; C2617; J3480; J7030; J7512; S0028

== ENCOUNTER 2019-11-05 20:01 | Emergency (ER) | payer MEDICARE ==
[~2019-11-05] VITALS: Ht 167.6 cm; Wt 57.6 kg
[~2019-11-05 20:01] MED LIST changes: +ALBU18HF INH; +ALBU18HF PO; +AZIT500T10 PO; -AZIT500T5 PO; +DOCU-131 PO; -DOXY100T10 PO; +DOXY100T23 PO; +FLUT1AER INH; -IPRA3AMP INH; -IPRA3AMP NPPB; +IPRA3AMP30 INH; +IPRA3AMP30 NPPB; -OSEL75CA PO; +OSEL75CA26 PO
--- NOTE | 2019-11-05 20:45 | NUR ---
PT HERE FOR INCRESED SOB. PT HAS BEEN USING INHALERS MORE OFTEN. PT TO XRAY.
[2019-11-05 20:49] LABS: BASOPHILS % (AUTO) 1 % (0-1); EOSINOPHILS # (AUTO) 0.76 x10^3/uL (0-0.4); EOSINOPHILS % (AUTO) 10 % (1-7); LYMPHOCYTES % (AUTO) 38 % (22-44); MD NO; MEAN CORPUSCULAR HGB CONC 32.7 g/dL (32.4-35.8); MEAN CORPUSCULAR VOLUME 88.5 fL (80-100); MEAN PLATELET VOLUME 8.7 fL (7.4-10.4); MONOCYTES # (AUTO) 0.48 x10^3/uL (0.2-0.8); MONOCYTES % (AUTO) 6 % (2-9); NEUTROPHILS # (AUTO) 3.32 x10^3/uL (1.8-6.8); NEUTROPHILS % (AUTO) 44 % (42-75); PLATELET COUNT 439 x10^3/uL (130-400)
[2019-11-05] MEDS ORDERED: ALBUTEROL SULFATE 2.5 MG/3 ML ONE ×2 (20:58→21:40)
[2019-11-05 20:59] LABS: ALBUMIN 3.3 g/dL (3.4-5.0); ANION GAP 5 mmol/L (5-15); CHLORIDE 109 mmol/L (98-107)
[2019-11-05 21:03] LABS: TROPONIN I < 0.015 ng/mL (0.000-0.045)
[2019-11-05 21:09] VITALS: BP 137/87
--- NOTE | 2019-11-05 21:09 | NUR ---
rt at bedside
[2019-11-05] MEDS: ALBUTEROL SULFATE 2.5 MG/3 ML NPPB SCH ×2 (21:22→21:54)
--- NOTE | 2019-11-05 22:22 | NUR ---
Patient given discharge instructions and they have confirmed that they understand the instructions. Patient ambulatory with steady gait.
== END 2019-11-05 22:35 | disposition home or self-care (01) ==
LOC: ED 22:31
DX: J44.1 Chronic obstructive pulmonary disease with (acute) exacerbation (principal); R06.02 Shortness of breath; E11.9 Type 2 diabetes mellitus without complications
CPT/HCPCS: 36415; 71046; 80048; 82040; 84484; 85025; 93005; 94640; 99285; J7512; J7613

== ENCOUNTER 2021-04-10 05:12 | Emergency (ER) | payer MEDICARE ==
[~2021-04-10] VITALS: Ht 167.6 cm; Wt 59.1 kg
[~2021-04-10 05:12] MED LIST changes: +AZIT250T PO; +HYDR-2214; -HYDR-3240; +LISI5TAB7 PO
--- NOTE | 2021-04-10 05:18 | NUR ---
PT CELIA FROM HOME, PT HAS BEEN HAVING DIFFICULTY BREATHING SINCE YESTERDAY MORNING, PT STATED SHE CANT AFFORD HER MEDICATIONS AND IS CURRENTLY OUT OF MEDS TO TAKE AT HOME, PT HAS HISTORY OF COPD AND EMPHYSEMA, EMS STARTED 18G IV IN PTS LEFT ARM, PT GIVEN ONE DUONEB AND 125MG OF IV SOLUMEDROL
[2021-04-10] MEDS ORDERED: SODIUM CHLORIDE FLUSH 10ML SYR IVF ONE (05:30)
[2021-04-10 05:57] LABS: BASOPHILS % (AUTO) 1 % (0-1); EOSINOPHILS % (AUTO) 11 % (1-7); LYMPHOCYTES % (AUTO) 40 % (22-44); MEAN CORPUSCULAR HEMOGLOBIN 29.5 pg (27.0-34.8); MEAN CORPUSCULAR HGB CONC 33.2 g/dL (32.4-35.8); MEAN PLATELET VOLUME 8.3 fL (7.4-10.4); MONOCYTES % (AUTO) 9 % (2-9); NEUTROPHILS % (AUTO) 40 % (42-75); PLATELET COUNT 319 x10^3/uL (130-400); RED BLOOD COUNT 4.98 x10^6/uL (3.82-5.3); RED CELL DISTRIBUTION WIDTH 14.4 % (9.6-15.2)
[2021-04-10 06:09] LABS: ALANINE AMINOTRANSFERASE 12 U/L (12-78); ANION GAP 4 mmol/L (5-15); CALCIUM 8.7 mg/dL (8.5-10.1); CHLORIDE 109 mmol/L (98-107); CREATININE 1.18 mg/dL (0.55-1.02)
--- NOTE | 2021-04-10 06:11 | NUR ---
PT LAYING IN BED PLAYING ON HER PHONE, PT A/OX4, ALL NEEDS IN REACH, CALL LIGHT IN REACH, NAD AT THIS TIME, VSS
[2021-04-10 06:12] VITALS: BP 139/85
[2021-04-10 06:14] LABS: ALKALINE PHOSPHATASE 89 U/L (45-117); BILIRUBIN,TOTAL 0.3 mg/dL (0.2-1.0); TOTAL PROTEIN 6.7 g/dL (6.4-8.2); TROPONIN I < 0.015 ng/mL (0.000-0.045)
--- NOTE | 2021-04-10 06:50 | NUR ---
RECEIVED REPORT FROM GINNY. PT UPRIGHT ON GURNEY AWAKE & COMFORTABLE, RESPONDS APPROP TO STAFF, NAD, NO NEEDS AT THIS TIME, CALL LIGHT WITHIN REACH.
--- NOTE | 2021-04-10 07:08 | NUR ---
Patient given discharge instructions and they have confirmed that they understand the instructions. Patient ambulatory with steady gait. NAD, all questions answered appropriately, denies additional needs at this time. No personal belongings left in room after discharge.
== END 2021-04-10 07:14 | disposition home or self-care (01) ==
LOC: ED 06:12
DX: J43.9 Emphysema, unspecified (principal); R00.0 Tachycardia, unspecified; E11.9 Type 2 diabetes mellitus without complications; F17.200 Nicotine dependence, unspecified, uncomplicated
CPT/HCPCS: 36415; 71045; 80053; 83880; 84484; 85025; 93005; 99285